=== PATIENT | male | born 1990 | race Caucasian/White ===

== ENCOUNTER 2018-07-12 13:47 | Emergency (ER) | payer OTHER ==
[2018-07-12 14:00] VITALS: BP 124/88
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
[2018-07-12] MEDS ORDERED: IBUPROFEN 200 MG TAB PO ONE (15:20)
== END 2018-07-12 15:10 | disposition home or self-care (01) ==
LOC: CED 13:47
DX: S43.101A Unspecified dislocation of right acromioclavicular joint, initial encounter (principal); V19.9XXA Pedal cyclist (driver) (passenger) injured in unspecified traffic accident, initial encounter; Y93.55 Activity, bike riding
CPT/HCPCS: 73030-PO; 99283-ER